=== PATIENT | male | born 1955 | race Caucasian/White ===

== ENCOUNTER 2017-03-07 07:34 | Inpatient (IN) | payer MEDICAID ==
[~2017-03-07] VITALS: Ht 177.8 cm; Wt 149.0 kg
[2017-03-07] MEDS ORDERED: NITROGLYCERIN OINT 2%, 1GM TP ONE ×2 (08:11→09:00)
[2017-03-07] MEDS ORDERED: ASPIRIN 81 MG TABLET CHEW ONE (08:12)
[2017-03-07] MEDS ORDERED: METF-163 PO (08:29)
[2017-03-07] MEDS ORDERED: INSU100I34 SQ (08:29)
[2017-03-07] MEDS ORDERED: WARF10TA PO (08:29)
[2017-03-07] MEDS ORDERED: FURO20TA3 PO (08:29)
[2017-03-07] MEDS ORDERED: WARF7.5T PO (08:29)
[2017-03-07] MEDS ORDERED: METO50TA82 PO (08:29)
[2017-03-07] MEDS ORDERED: ATOR40TA78 PO (08:29)
[2017-03-07] MEDS ORDERED: AMIO200T42 PO (08:29)
[2017-03-07] MEDS ORDERED: SODIUM CHLORIDE FLUSH 10ML SYR IVF ONE (08:30)
[2017-03-07] MEDS ORDERED: ASPIRIN 81 MG TABLET CHEW PO ONE (08:30)
[2017-03-07] MEDS ORDERED: SODIUM CHLORIDE 0.9% 1,000ML IVBOLUS ONE (08:30)
[2017-03-07] MEDS ORDERED: ONDANSETRON 2MG/ML, 2ML ONE (08:50)
[2017-03-07] MEDS ORDERED: ONDANSETRON 2MG/ML, 2ML IVPush ONE ×2 (09:00→10:30)
[2017-03-07 09:19] LABS: ASPARTATE AMINO TRANSFERASE 20 U/L (15-37); BLOOD UREA NITROGEN 21 mg/dL (7-18)
[2017-03-07 09:22] LABS: HEMOGLOBIN 14.8 g/dL (13.7-18.0); WHITE BLOOD COUNT 8.7 x10^3/uL (3.4-10)
[2017-03-07 09:23] LABS: IS PT STATUS REG ER OR PRE ER? YES
[2017-03-07] MEDS ORDERED: morphine SULFATE 10 MG/ML, 1ML IVPush PRN ×2 (10:30→12:00)
[2017-03-07] MEDS ORDERED: morphine SULFATE 10 MG/ML, 1ML ONE (10:44)
[2017-03-07 11:12] VITALS: BP 153/95
[2017-03-07] MEDS ORDERED: ENALAPRILAT 1.25 MG/ML, 2ML IVPush PRN (12:00)
[2017-03-07] MEDS ORDERED: DEXTROSE 4 GM TAB.CHEW PO PRN (12:00)
[2017-03-07] MEDS ORDERED: DEXTROSE 50%, 50ML SYRINGE IVPush PRN (12:00)
[2017-03-07] MEDS ORDERED: POLYETHYLENE GLYCOL 17 GM PACKET PO PRN (12:00)
[2017-03-07] MEDS ORDERED: ACETAMINOPHEN 325 MG TABLET PO PRN (12:00)
[2017-03-07] MEDS ORDERED: DOCUSATE 100 MG CAPSULE PO PRN (12:00)
[2017-03-07] MEDS ORDERED: FUROSEMIDE 40 MG/4 ML IV ONE (12:00)
[2017-03-07] MEDS ORDERED: LABETALOL 5MG/ML, 20ML IVPush PRN (12:00)
[2017-03-07] MEDS ORDERED: GLUCAGON 1 MG IM PRN (12:00)
[2017-03-07] MEDS ORDERED: ONDANSETRON 2MG/ML, 2ML IVPush PRN (12:00)
[2017-03-07] MEDS ORDERED: BISACODYL 10 MG SUPP PR PRN (12:00)
[2017-03-07] MEDS ORDERED: NITROGLYCERIN 0.4 MG BOTTLE (25 TABS) SL PRN (12:00)
[2017-03-07 12:45] LABS: IS PT STATUS REG ER OR PRE ER? NO
[2017-03-07 13:45] VITALS: BP 160/101
[2017-03-07] MEDS: HYDROcodone/APAP 5/325 TABLET PO PRN ×2 (13:54→20:39)
[2017-03-07] MEDS ORDERED: MAALOX/HYOSCYAMINE/LIDOCAINE 45 ML BTL PO ONE (14:00)
[2017-03-07] MEDS: INSULIN ASPART 100 UNITS/ML, PEN SQ-INSULIN SCH ×2 (16:00→20:40)
[2017-03-07] MEDS: METOPROLOL TARTRATE 25 MG TABLET PO SCH (17:41)
[2017-03-07 17:43] LABS: IS PT STATUS REG ER OR PRE ER? NO
[2017-03-07] MEDS ORDERED: INSULIN DETEMIR 100 UNITS/ML, PEN SQ-INSULIN ONE (18:00)
[2017-03-07 18:55] VITALS: BP 153/91
[2017-03-07] MEDS: SODIUM CHLORIDE FLUSH 10ML SYR IVF SCH (20:39)
[2017-03-07] MEDS ORDERED: ATORVASTATIN 40 MG TABLET PO SCH (21:00)
[2017-03-08 01:32] VITALS: BP 129/85
[2017-03-08 05:24] LABS: HEMATOCRIT 43.9 % (39.2-51.8); HEMOGLOBIN 14.4 g/dL (13.7-18.0); WHITE BLOOD COUNT 8.4 x10^3/uL (3.4-10)
[2017-03-08 05:34] LABS: BLOOD UREA NITROGEN 21 mg/dL (7-18)
[2017-03-08] MEDS ORDERED: ASPIRIN 325 MG TABLET EC PO SCH (06:00)
[2017-03-08 06:09] VITALS: BP 162/107
[2017-03-08] MEDS: METOPROLOL TARTRATE 25 MG TABLET PO SCH (06:10)
[2017-03-08] MEDS: HYDROcodone/APAP 5/325 TABLET PO PRN (06:11)
[2017-03-08] MEDS: INSULIN ASPART 100 UNITS/ML, PEN SQ-INSULIN SCH ×3 (07:00→16:56)
[2017-03-08] MEDS ORDERED: PANTOPRAZOLE 40 MG IV IVPush SCH (07:30)
[2017-03-08] MEDS ORDERED: HOLD COUMADIN MC PRN (08:00)
[2017-03-08] MEDS ORDERED: REGADENOSON 0.4 MG/5 ML SYRINGE ONE (08:17)
[2017-03-08] MEDS ORDERED: AMIODARONE 200 MG TABLET PO SCH (09:00)
[2017-03-08] MEDS ORDERED: FUROSEMIDE 20 MG TABLET PO SCH (09:00)
[2017-03-08] MEDS: SODIUM CHLORIDE FLUSH 10ML SYR IVF SCH (09:00)
[2017-03-08] MEDS ORDERED: FUROSEMIDE 40 MG TABLET ONE (10:33)
[2017-03-08 13:07] VITALS: BP 141/86
[2017-03-09] MEDS ORDERED: PANTOPRAZOLE 20MG TABLET PO SCH (07:30)
== END 2017-03-08 18:55 | disposition home or self-care (01) | DRG 291 ==
LOC: ED 08:59 → EDIP 09:54 → 5SO 11:00
PROVIDERS: ADMIT Hospitalist; ATTEND Hospitalist
DX: I11.0 Hypertensive heart disease with heart failure (principal); J96.00 Acute respiratory failure, unspecified whether with hypoxia or hypercapnia; D68.69 Other thrombophilia; D69.6 Thrombocytopenia, unspecified; E11.40 Type 2 diabetes mellitus with diabetic neuropathy, unspecified; E11.65 Type 2 diabetes mellitus with hyperglycemia; Z68.42 Body mass index [BMI] 45.0-49.9, adult; I50.21 Acute systolic (congestive) heart failure; E66.01 Morbid (severe) obesity due to excess calories; G47.33 Obstructive sleep apnea (adult) (pediatric); I48.91 Unspecified atrial fibrillation; I25.10 Atherosclerotic heart disease of native coronary artery without angina pectoris; I25.2 Old myocardial infarction; Z79.01 Long term (current) use of anticoagulants; Z79.4 Long term (current) use of insulin; Z79.82 Long term (current) use of aspirin; Z80.1 Family history of malignant neoplasm of trachea, bronchus and lung; Z82.49 Family history of ischemic heart disease and other diseases of the circulatory system; Z87.891 Personal history of nicotine dependence; Z95.5 Presence of coronary angioplasty implant and graft
CPT/HCPCS: 36415; 71010; 78452; 80048; 80053; 82962; 83036; 83605; 83735; 83880; 84100; 84484; 85025; 85610; 93005; 93017; 93306; 96374; J1815; J1940; J2405; J2785; A9502; C9113; C9898; J2270; J7030